=== PATIENT | male | born 2005 | race Caucasian/White ===

== ENCOUNTER 2025-03-29 02:37 | Day surgery (SDC) | payer MEDICARE, MEDICAID, SELFPAY ==
[2025-03-22 11:23] VITALS: BMI 40.6
--- NOTE | 2025-03-22 11:44 | PC.NURSE ---
[facility] has started construction of its new state of the art ER which will open Spring 2026. With this, we anticipate parking may be a challenge for some our surgical patients and families. Parking spaces are limited but are available for all Surgical, obstetrics, and ER patients sharing this lot. If you arrive and find you are having a hard time finding a parking space, please note that we understand the challenges, please drive around the hospital and park near Hospital Entrance 1. When you enter this entrance, you can ask a volunteer to direct or take you back to the surgical waiting area to check in. We appreciate everyone?s understanding of these expected challenges while we build for your future. Report to the Outpatient Waiting Room, entrance under the green pavilion located off [address], at time _1:00PM on date ___03/29/25__. Planned Procedure Time: ___3:00PM____.? Time changes happen often and if your time is changed the preop area will call you the afternoon before. - You and your visitor will be asked to self-screen and do not enter if you have any COVID symptoms. Please call surgeon if you need to reschedule. - A mask is optional within the hospital at this time. Patients may have clear liquids (water, carbonated beverages, clear teas, apple juice) until 3 hours prior to surgery (12:00PM) with a maximum of 20 ounces. - No food from midnight until time of surgery and no smoking, or chewing tobacco (or any form of nicotine). No chewing gum, candy or mints. Take only the following medications with a SIP of water on the morning of surgery: __NONE DO NOT STOP ANY OF YOUR OTHER PRESCRIPTION MEDICATIONS PRIOR TO SURGERY EXCEPT THE FOLLOWING Hold all vitamins and supplements for 3 days per anesthesiologist. Medications to discontinue per physician NONE Date to take last dose Please no make-up, nail [place], hairspray, perfume, deodorant, or body powder the day of surgery.? No jewelry (including any body piercings) or valuables the day of surgery, leave them at home.? Please take a shower or bath the night before, or the morning of, surgery with an antibacterial soap.? Wear comfortable, loose fitting clothing.? Children are encouraged to wear pajamas. - Jewelry must be removed prior to entering the operating room.? Rings and piercings that are not removed may be cut off. - The hospital will not accept responsibility for valuables.? - Please leave all valuables, including medications, at home the day of surgery. If you are going home after surgery, a licensed jinrikisha driver must drive you home.? - NO public transportation without another adult if you receive anesthesia. - We recommend that an adult stay with you for 24 hours following discharge. - We also recommend that you do not drive, make important decision, drink alcoholic beverages, or take any drugs that were not prescribed by your health care provider for at least 24 hours after your discharge time. For Pediatric surgeries, we recommend two adults accompany the child home. Follow any additional instructions given to you from your surgeon. Telephone instructions given to ___PATIENT and asked if any additional questions and then verbalized understanding. Patient advised to call surgeon office or pre surgery nurse liaison [phone] if any additional questions.
[2025-03-29] VITALS (7 sets, daily range): BP systolic 122–155; BP diastolic 62–90; PULSE 96–110; RESP 16–20; TEMP 36.1; O2SAT 97–100; BMI 42.7
--- NOTE | ~2025-03-29 | XR_ITS ---
EXAMINATION: XR retrograde pyelogram RT DATE: 03/29/2025 16:11 INDICATION: Right retrograde urogram and stent placement TECHNIQUE: 2 fluoroscopic images of the right side of the abdomen and pelvis were obtained procedure performed by Dr. Lowry. Radiologist was not present for the imaging or procedure. The amount of fluoroscopy time used during this procedure was 0.1 minutes. The dose area product was 0.58 mGym^2. COMPARISON: None. FINDINGS: Initial image demonstrates cannulation of the right ureter and retrograde contrast injection demonstrating mild right hydronephrosis. The catheter is been advanced into a lower pole calyx on the subsequent image. IMPRESSION: 1. Fluoroscopy utilized during urologic procedure involving the right ureter. See procedure note for further detail. Reviewed, dictated and finalized at location A. PROCESSOR IMPRESSION: 1. Fluoroscopy utilized during urologic procedure involving the right ureter. S ee procedure note for further detail.
[2025-03-29] MEDS: MIDAZOLAM HCL (*CRX) 2 MG/2 ML VIAL IV PUSH (14:45)
--- NOTE | 2025-03-29 15:23 | PM.HPGS ---
History of Present Illness History of Present Illness Consent: Risks, benefits, and alternatives have been discussed and questions answered. Patient agrees to proceed with procedure. Chief complaint: Right Ureteral Stone Narrative: Vadim Estrada is a 19 year old male with right ureteral stone. He has had persistent lower urinary tract symptoms due to the stone. Review of Systems Review of Systems: ROS unobtainable: Yes unobtainable due to mental status [facility] Past Medical History Medical History (Updated 03/29/25 @ 15:27 by Ghazal Lowry MD) Right ureteral stone Social History Social History Smoking status: Never smoker Living arrangements: with family Additional living arrangements comments: MOTHER Spiritual care concerns: No Meds Home Medications and Allergies Home Medications ?Medication ?Instructions ?Recorded ?Confirmed ?Type acetaminophen 500 mg oral powder 1,000 mg PO Q6H PRN pain 03/22/25 03/22/25 History packet (Tylenol Extra Strength) alprazolam 2 mg tablet (Xanax) 2 mg PO ONCE PRN anxiety 03/29/25 03/29/25 History Allergies Allergy/AdvReac Type Severity Reaction Status Date / Time No Known Allergies Allergy Verified 03/29/25 13:22 Vital Signs Vital Signs - 24 hr 03/29/25 11:15 Temperature 36.1 C L Pulse Rate 110 H Blood Pressure 155/81 H Pulse Oximetry 100 Oxygen Delivery Room Air Exam Const: General: comfortable HENMT: Face/Nose/Sinus: Normal nares present Mouth: Yes moist mucous membranes Eyes: General: appearance normal, both eyes and all related structures Resp: Effort & Inspection: normal respiratory effort Cardio: Rate: regular rate Skin: General skin exam: normal color Rashes: rashes noted (left forearm, right wrist lesions) Extrem: General: normal to inspection Psych: Affect: Anxious affect present Assessment and Plan Assessment and plan (1) Right ureteral stone: Code(s): N20.1 - Calculus of ureter Status: Acute Plan Plan cystoscopy, right ureteroscopy, laser lithotripsy, stone extraction, possible retrograde pyelogram with stent placement
--- NOTE | 2025-03-29 15:28 | WPDHPUPDATE1 ---
History and Physical Update Update Date/Time: 03/29/25 15:28 History and Physical has been reviewed, including an updated exam of the patient. There are NO changes in the patient's condition. Plan cystoscopy, right ureteroscopy, laser lithotripsy, stone extraction, possible retrograde pyelogram with stent placement Risks, benefits, and alternatives have been discussed and questions answered. Patient agrees to proceed with procedure.
[2025-03-29] MEDS: ceFAZolin 3 GM/D5W 100 ML 100 ML IVPB (15:31)
--- NOTE | 2025-03-29 15:53 | P.PNAN_ITS ---
Anes - Initial Pre Proc Eval Procedure: Operation Date: 03/29/25 13:00 Proposed Procedures p Cystoscopy Right Ureteroscopy, Right Stone Extraction, Holmium Laser Lithotripsy, Possible Right Retrograde Pyelogram, Right Stent Placement - Ghazal Lowry MD Date/Time: 03/29/25 15:53 Surgeon: Ghazal Lowry MD Pre Op Diagnosis: Right Ureteral Stone Patient Data Age: 19 Gender: M Height: 1.75 m Weight: 131.4 kg Last Vital Signs Temp 36.1 C L 03/29/25 11:15 Pulse 110 H 03/29/25 11:15 BP 155/81 H 03/29/25 11:15 Pulse Ox 100 03/29/25 11:15 O2 Del Method Room Air 03/29/25 11:15 Allergies Allergy/AdvReac Type Severity Reaction Status Date / Time No Known Allergies Allergy Verified 03/29/25 13:22 Home Medications ?Medication ?Instructions ?Recorded ?Confirmed ?Type acetaminophen 500 mg oral powder 1,000 mg PO Q6H PRN p ain 03/22/25 03/22/25 History packet (Tylenol Extra Strength) alprazolam 2 mg tablet (Xanax) 2 mg PO ONCE PRN anxiet y 03/29/25 03/29/25 History Patient hx anesthesia problems: none Family hx anesthesia problems: none Results Review: All pre-operative results and documents have been reviewed as part of the pre- operative evaluation. [facility] Past Medical History Medical History Right ureteral stone Social History Social History Smoking status: Never smoker Living arrangements: with family Additional living arrangements comments: MOTHER Spiritual care concerns: No Anes - Eval Final PreProcedure Day of Procedure 03/29/25 15:53 Patient weight: morbidly obese Heart: regular rate and rhythm Lungs: clear to auscultation Neurological: other (alert) Last oral intake: >/= 8 hours ASA classification: III Emergent: no Anesthetic plan: proceed Anesthesia type and monitoring: general LMA and standard monitoring Results Review: All pre-operative results and documents have been reviewed as part of the pre- operative evaluation. Informed Consent: The patient's anesthetic plan and its attendant risks and benefits were discussed with the patient/family/POA. Questions were solicited and answers provided to the satisfaction of the patient/family/POA.
[2025-03-29] MEDS: LIDOCAINE 2% GEL UROJET 10 ML PKG MUCOUS MEM (16:09)
[2025-03-29] MEDS: KETOROLAC 30 MG/ML VIAL (*BKC) IV PUSH (16:10)
[2025-03-29] MEDS: LACTATED RINGERS 1,000 ML 30 ML IV CONT (16:17)
--- NOTE | 2025-03-29 16:47 | W.PM.PROC2 ---
Procedure Note - Detailed Date of Procedure 03/29/25 Pre-op Diagnosis Right Ureteral Stone Post-op Diagnosis Other (Spontaneously passed ureteral stone, no stone identified) Procedure Performed Cystoscopy, right retrograde pyelogram, right ureteroscopy Surgeon Ghazal Lowry MD Anesthesia General Findings No ureteral or ureteral stone, no hydronephrosis Description of Procedure Patient was correctly identified and informed consent was obtained from his mother who has [id number]. He was taken to the operating room and placed in the dorsal lithotomy position. He was given intravenous antibiotics within 1 hour of procedure start and bilateral SCDs were placed for DVT prophylaxis. He was prepped and draped in the standard fashion. Rigid cystoscopy was performed. The urethra and bladder appeared. There were no tumors or other lesions noted. The right ureteral orifice was identified and a Sensor guidewire was passed into the ureter. Semi rigid ureteroscopy was performed to the proximal ureter and no stone was identified. Flexible ureteroscopy was then undertaken to evaluate for proximally migrated stone. The collecting system was thoroughly and systematically inspected. There were interstitial calcifications noted throughout the collecting system, however no stone was identified. Retrograde pyelogram was performed to ensure complete inspection the collecting system. There were no stones identified. The ureteroscope was then withdrawn visualizing the distal ureter in its entirety upon removal. There were no ureteral injuries noted. As the procedure was uneventful and without trauma a stent was not left in place. The bladder was then drained. The patient tolerated the procedure well. Estimated Blood Loss 0 Complications None Disposition PACU
[2025-03-29] MEDS: ONDANSETRON INJ 4 MG/2 ML VIAL IV PUSH (17:05)
== END 2025-03-29 17:37 | disposition home or self-care (01) ==
PROVIDERS: PCP Pediatrics; Visit Provider Urology
PROC: (CPT 52352; principal; 2025-03-29 13:00)
DX: N20.1 Calculus of ureter (principal); E66.01 Morbid (severe) obesity due to excess calories; Z68.41 Body mass index [BMI] 40.0-44.9, adult
CPT/HCPCS: 52351; 74420; C1769; J0690; J1885; J2250; J2270; J2405; J2704; J7120; Q9966